=== PATIENT | female | born 1975 | race Caucasian/White ===

== ENCOUNTER 2022-05-22 18:35 | Emergency (ER) | payer BC ==
[~2022-05-22] VITALS: Ht 162.5 cm; Wt 82.3 kg
--- NOTE | 2022-05-22 19:16 | ED Cough/URI ---
General Chief Complaint: COVID19 Suspect/Confirmed Stated Complaint: POSS COVID Source: patient Exam Limitations: no limitations History of Present Illness Date Seen by Provider: May 22, 2022 Time Seen by Provider: 19:14 Initial Comments Patient is a 46-year-old female with a history of COPD presents ED with sore throat, cough, body aches headache chills fatigue. Symptoms started last night. She states she felt cold with chills throughout the night. She has been wearing multiple clothing to stay warm. She reports a wet productive cough with phlegm production. No shortness of breath, chest pain or wheezing. Denies breathing treatments at home. History of smoking 3 months ago. She reports some pain and discomfort to the left lateral abdomen. Described as sharp without radiation. No urinary symptoms. No one else at home with similar symptoms. Not up-to-date on her COVID or influenza vaccine. She has associated headache with sore. Has been taken ibuprofen without much improvement. She states she slept for most of the day. Denies neck pain, visual change, ear pain, back pain, dysuria, hematuria or concern for , nausea, vomiting, diarrhea, fever. Allergies and Home Medications Allergies Coded Allergies: No Known Drug Allergies (Unverified , 05/22/22) Patient Home Medication List Home Medication List Reviewed: Yes Nirmatrelvir/Ritonavir (Paxlovid 150-100 mg Pack (Eua)) 150 Mg-100 Mg Tablet, 1 EACH PO BID Prescribed by: ADRIÁN FREEMAN on 05/22/221952 Review of Systems Review of Systems Constitutional: chills; No diaphoresis; malaise, weakness EENTM: throat pain; No ear pain, No blurred vision, No double vision Respiratory: cough; No short of breath Cardiovascular: No chest pain Gastrointestinal: No abdominal pain, No diarrhea, No nausea, No vomiting Genitourinary: No decreased output, No discharge, No dysuria, No frequency Musculoskeletal: No back pain, No joint pain Skin: No change in color, No change in hair/nails All Other Systems Reviewed Negative Unless Noted: Yes Past Xekidcg-Vifrzq-Yzqssh Hx Patient Social History Tobacco Use?: Yes Tobacco type used: Cigarettes Smoking Status: Former Smoker Use of E-Cig and/or Vaping dev: Yes E-Cig or Vaping type used: Nicotine Use of E-Cig and/or Vaping Tom: Current Everyday User Substance use?: No Alcohol Use?: Yes Alcohol type: Beer, Wine Alcohol Frequency: Rarely Pt feels they are or have been: No Immunizations Up To Date Influenza Vaccine Up-to-Date: No; Not Current Physical Exam Vital Signs - First Documented 05/22/22 19:11 Temp 38.3 Pulse 70 Resp 20 B/P (MAP) 103/77 (86) Pulse Ox 97 O2 Delivery Room Air Capillary Refill : Height: '" Weight: lbs. oz. kg; BMI Method: General Appearance: WD/WN, no apparent distress Eyes: Bilateral Eye Normal Inspection, Bilateral Eye PERRL, Bilateral Eye Abnormal EOM HEENT: PERRL/EOMI, normal ENT inspection, TMs normal, pharynx normal Neck: non-tender, full range of motion, supple, normal inspection Respiratory: chest non-tender, lungs clear, normal breath sounds, no respiratory distress, no accessory muscle use Cardiovascular: regular rate, rhythm, no edema, no gallop, no JVD Gastrointestinal: normal bowel sounds, non tender, soft, no organomegaly, no pulsatile mass Neurologic/Psychiatric: vp integration II-XII nml as tested, no motor/sensory deficits, alert, normal mood/affect, oriented x 3 Skin: normal color, warm/dry Progress/Results/Core Measures Suspected Sepsis SIRS Temperature: Pulse: Respiratory Rate: Blood Pressure / Mean: Results/Orders Lab Results Laboratory Tests Test 05/22/22 19:06 05/22/22 19:16 Range/Units Influenza Type A (RT-PCR) Not Detected Not Detecte Influenza Type B (RT-PCR) Not Detected Not Detecte SARS-CoV-2 RNA (RT-PCR) Detected H Not Detecte Group A Streptococcus Screen NEGATIVE NEGATIVE Urine Color YELLOW Urine Clarity CLEAR Urine pH 6.0 5-9 Urine Specific [place] >=1.030 1.016-1.022 Urine Protein TRACE H NEGATIVE Urine Glucose (UA) NEGATIVE NEGATIVE Urine Ketones TRACE H NEGATIVE Urine Nitrite NEGATIVE NEGATIVE Urine Bilirubin NEGATIVE NEGATIVE Urine Urobilinogen 0.2 < = 1.0 MG/DL Urine Leukocyte Esterase NEGATIVE NEGATIVE Urine RBC (Auto) NEGATIVE NEGATIVE Urine RBC NONE /HPF Urine WBC RARE /HPF Urine Squamous Epithelial Cells 2-5 /HPF Urine Crystals NONE /LPF Urine Bacteria FEW H /HPF Urine Casts NONE /LPF Urine Mucus SMALL H /LPF Urine Culture Indicated YES Urine Test NEGATIVE NEGATIVE My Orders Orders - HUNG AMAYA Covid 19 Inhouse Test (05/22/22 18:46) Influenza A And B By Pcr (05/22/22 18:46) Rapid Strep A Screen (05/22/22 19:13) Urinalysis (05/22/22 19:13) Hcg,Qualitative Urine (05/22/22 19:13) Urine Culture (05/22/22 19:16) Ibuprofen Tablet (Motrin Tablet) (05/22/22 20:00) Ibuprofen Tablet (Motrin Tablet) (05/22/22 19:50) Medications Given in ED Current Medications Medications Dose Ordered Sig/Araceli Route Start Time Stop Time Status Last Admin Dose Admin Ibuprofen 800 mg ONCE ONCE PO 05/22/22 20:00 05/22/22 19:53 DC 05/22/22 19:50 800 MG Vital Signs/I&O 05/22/22 05/22/22 05/22/22 05/22/22 19:11 19:11 19:50 19:51 Temp 38.3 38.3 38.1 Pulse 70 66 Resp 20 16 B/P (MAP) 103/77 (86) 114/71 Pulse Ox 97 98 O2 Delivery Room Air Room Air Room Air Capillary Refill : Departure Communication (PCP) Urinalysis without strong evidence of infection. COVID-positive. Stable vital sign. Patient lung sounds clear bilateral. No acute respiratory distress. She has some left-sided abdominal tenderness without any evidence of peritoneal signs. Patient was given ibuprofen for headache. She has no meningeal signs. Symptoms started yesterday. She is currently on Zoloft and Klonopin. Discussed discharging patient with Ana. Desmond does not have the medication but this was sent to [facility]. Quarantine for 10 days. Not to date her COVID vaccines. Discussed monitor oxygen level with pulse ox. If any worsening symptoms such as shortness of breath, worsening cough to return back to ED. Discussed importance of oral hydration. Recommend Tylenol ibuprofen for body aches and pains. Impression Primary Impression: COVID-19 Disposition: 01 HOME, SELF-CARE Condition: Stable Departure-Patient Inst. Decision time for Depature: 19:46 Referrals: [facility] [place] NO,LOCAL PHYSICIAN (PCP) Primary Care Physician Patient Instructions: COVID-19 (DC) Scripts Nirmatrelvir/Ritonavir (Paxlovid 150-100 mg Pack (Eua)) 150 Mg-100 Mg Tablet 1 EACH PO BID for 5 Days, #10 TAB Prov: HUNG AMAYA 05/22/22 Work/School Note: Work Release Form Date Seen in the Emergency Department: May 22, 2022 Return to Work: Jun 01, 2022 HUNG AMAYA May 22, 2022 19:16
[2022-05-22 19:23] LABS: BILIRUBIN,URINE NEGATIVE (NEGATIVE); CLARITY,URINE CLEAR; COLOR,URINE YELLOW; GLUCOSE, URINE (UA) NEGATIVE (NEGATIVE); KETONES,URINE TRACE (NEGATIVE); LEUKOCYTE ESTERASE ,URINE NEGATIVE (NEGATIVE); NITRITE,URINE NEGATIVE (NEGATIVE); PROTEIN,URINE TRACE (NEGATIVE)
[2022-05-22 19:33] LABS: BACTERIA,URINE FEW /HPF; WBC,URINE RARE /HPF
[2022-05-22] MEDS ORDERED: NIRM1TAB5 PO ×2 (19:47→19:53)
[2022-05-22] MEDS ORDERED: IBUPROFEN 800 MG (MOTRIN) TAB PO ONE ×2 (19:50→20:00)
[2022-05-22 19:51] VITALS: BP 114/71
== END 2022-05-22 19:51 | disposition home or self-care (01) ==
LOC: ER 18:40
DX: U07.1 COVID-19 (principal); F17.290 Nicotine dependence, other tobacco product, uncomplicated; Z28.310 Unvaccinated for COVID-19
CPT/HCPCS: 81000; 84703; 87088; 87430; 87636; 99283

== ENCOUNTER 2023-01-26 18:46 | Emergency (ER) | payer SELFPAY ==
[~2023-01-26] VITALS: Ht 160 cm; Wt 82.3 kg
[~2023-01-26 18:46] MED LIST: NIRM1TAB5 PO
--- NOTE | 2023-01-26 19:51 | ED Lower Extremity ---
General Chief Complaint: Lower Extremity Stated Complaint: RIGHT KNEE INJURY Source: patient Exam Limitations: no limitations History of Present Illness Date Seen by Provider: Jan 26, 2023 Time Seen by Provider: 19:00 Initial Comments 47-year-old female with no pertinent past medical history coming in due to right knee pain. She was standing up about an hour prior to arrival, is thinking she may be twisted her knee, felt a give out. Having significant pain with straightening or putting weight on it. Has not taken anything for it as of yet. Otherwise denying any other acute complaints. She notes that 15 years ago she hurt her knee, went to the ER, and has never followed up with this. LMP less than a month ago Allergies and Home Medications Allergies Coded Allergies: Tetracyclines (Verified Allergy, Unknown, 01/26/23) amoxicillin (Verified Allergy, Unknown, 01/26/23) meloxicam (Verified Allergy, Unknown, 01/26/23) tolerates other NSAIDS paroxetine (Verified Allergy, Unknown, 01/26/23) sulfamethoxazole (Verified Allergy, Unknown, 01/26/23) trimethoprim (Verified Allergy, Unknown, 01/26/23) Patient Home Medication List Home Medication List Reviewed: Yes Nirmatrelvir/Ritonavir (Paxlovid 150-100 mg Pack (Eua)) 150 Mg-100 Mg Tablet, 1 EACH PO BID Prescribed by: ADRIÁN FREEMAN on 05/22/221952 Review of Systems Constitutional: No fever EENTM: no symptoms reported Respiratory: no symptoms reported Cardiovascular: no symptoms reported Gastrointestinal: no symptoms reported Genitourinary: no symptoms reported Musculoskeletal: see HPI Skin: no symptoms reported Psychiatric/Neurological: No Symptoms Reported Past Awukkxf-Qidalg-Kixfad Hx Patient Social History Tobacco Use?: No Use of E-Cig and/or Vaping dev: Yes E-Cig or Vaping type used: Nicotine Past Medical History Surgeries: Yes Section Physical Exam Vital Signs Vital Signs - First Documented 01/26/23 19:41 Temp 36.8 Pulse 72 Resp 20 B/P (MAP) 132/84 (100) Pulse Ox 98 O2 Delivery Room Air Capillary Refill : Height, Weight, BMI Height: '" Weight: lbs. oz. kg; 31.00 BMI Method: General Appearance: WD/WN, no apparent distress HEENT: PERRL/EOMI, normal ENT inspection, pharynx normal Neck: non-tender, full range of motion, supple, normal inspection Cardiovascular: regular rate, rhythm, no edema, no murmur Respiratory: chest non-tender, lungs clear, normal breath sounds, no respiratory distress, no accessory muscle use Gastrointestinal: normal bowel sounds, non tender, soft; No guarding Hips: bilateral hip non-tender, bilateral hip normal inspection, bilateral hip normal range of motion, bilateral hip no evidence of injury Legs: bilateral leg non-tender, bilateral leg normal inspection, bilateral leg normal range of motion, bilateral leg no evidence of injury Knees: right knee other (Right knee without swelling, no joint line tenderness, patella is located, pain with full extension and full flexion, although she does have full range of motion, neurovascularly intact distal to the injury) Neurologic/Tendon: normal sensation, normal motor functions Neurologic/Psychiatric: no motor/sensory deficits, alert, normal mood/affect Skin: normal color, warm/dry Progress/Results/Core Measures Results/Orders My Orders Orders - HUNG ESQUIVEL MD Knee, Right, 3 Views (01/26/23 19:46) Ibuprofen Tablet (Motrin Tablet) (01/26/23 20:00) Medications Given in ED Current Medications Medications Dose Ordered Sig/Araceli Route Start Time Stop Time Status Last Admin Dose Admin Ibuprofen 600 mg ONCE ONCE PO 01/26/23 20:00 01/26/23 20:01 DC 01/26/23 19:50 600 MG Vital Signs/I&O 01/26/23 19:41 Temp 36.8 Pulse 72 Resp 20 B/P (MAP) 132/84 (100) Pulse Ox 98 O2 Delivery Room Air Progress Progress Note : Progress Note 47-year-old female with above history coming in after right knee pain after feeling a give out. ABCs were intact and vitals are stable on presentation. Physical exam with pain with range of motion, although she has full range of motion, no joint line tenderness. X-ray of the right knee ordered and interpreted by me showing no fracture or dislocation. She is neurovascularly intact otherwise with no red flags. We will give her an Zion wrap, crutches, and have her follow-up with orthopedics as an outpatient. Departure Impression Primary Impression: Right knee pain Qualified Codes: M25.561 - Pain in right knee Disposition: 01 HOME, SELF-CARE Condition: Stable Departure-Patient Inst. Decision time for Depature: 20:30 Referrals: [facility] (PCP/Family) Primary Care Physician Patient Instructions: Knee Sprain (DC) Add. Discharge Instructions: Please follow-up with Dr. Jerome, the orthopedist for repeat evaluation, and he may need to order more advanced imaging. Use the crutches for comfort. Take ibuprofen and/or Tylenol as needed for pain. Also keep it elevated and wrapped. Work/School Note: Work Release Form Date Seen in the Emergency Department: Jan 26, 2023 Return to Work: Jan 30, 2023 Restrictions: Need Release from Doctor HUNG ESQUIVEL MD Jan 26, 2023 19:51
[2023-01-26] MEDS ORDERED: IBUPROFEN 600 MG (MOTRIN) TAB PO ONE (20:00)
--- NOTE | 2023-01-26 20:25 | Diagnostic Imaging Report ---
INDICATION: 47-year-old female with right knee pain. COMPARISONS: None FINDINGS: Three views of the right knee showed no evidence of new or healing fractures, bony destruction or remodeling. There is a small suprapatellar joint effusion. IMPRESSION: Small suprapatellar joint effusion but no fracture or subluxation is seen in the right knee. Dictated by: Dictated on workstation # [id number]
[2023-01-26 20:47] VITALS: BP 128/80
== END 2023-01-26 20:49 | disposition home or self-care (01) ==
LOC: EDUNIT# 18:46 → ER 18:50
DX: M25.561 Pain in right knee (principal); F17.290 Nicotine dependence, other tobacco product, uncomplicated; Z88.6 Allergy status to analgesic agent
CPT/HCPCS: 73562; 99283; L1830

== ENCOUNTER 2023-02-13 15:34 | Emergency (ER) | payer OTHER ==
[~2023-02-13] VITALS: Ht 160 cm; Wt 86.0 kg
--- NOTE | 2023-02-13 16:12 | ED Lower Extremity ---
General Chief Complaint: Lower Extremity Stated Complaint: RIGHT KNEE PAIN Nursing Triage Note: PT STATES PAIN IN RT KNEE, WAS SEEN FOR DISLOCATED KNEE CAP AND TORN CALF MUSCLE RECENTLY, CC TODAY BUMPS ON RT KNEE CAP, DID NOT NOTICE THIS BEFORE TODAY. Source: patient Exam Limitations: no limitations History of Present Illness Date Seen by Provider: Feb 13, 2023 Time Seen by Provider: 16:09 Initial Comments Patient is a 47-year-old female who presents to the ED with right knee pain. Patient states she woke up with concern for a triangular deformity of her right kneecap. She denies of any specific injury. She states she was seen here January 28 concerning for patella dislocation versus ligament injury. She did follow-up with Dr. Jerome orthopedic who recommended PT stationary bike recheck in 6 weeks if no improvement patient would likely benefit with MRI. She noticed some swelling to the anterior knee this morning. She states she has some pain with standing and walking but no worsening pain since the injury. She has been working more at [employer] which may be result of the potential deformity. She has been taken anti-inflammatories. She reports normal active range of motion without any lucency, laxity. Denies fever, chills, redness, swelling. She does report a right calf tear from her last injury. Patient works at [employer] and states her pharmacist recommended her to get an MRI. Allergies and Home Medications Allergies Coded Allergies: Tetracyclines (Verified Allergy, Unknown, 01/26/23) amoxicillin (Verified Allergy, Unknown, 01/26/23) meloxicam (Verified Allergy, Unknown, 01/26/23) tolerates other NSAIDS paroxetine (Verified Allergy, Unknown, 01/26/23) sulfamethoxazole (Verified Allergy, Unknown, 01/26/23) trimethoprim (Verified Allergy, Unknown, 01/26/23) Patient Home Medication List Home Medication List Reviewed: Yes Nirmatrelvir/Ritonavir (Paxlovid 150-100 mg Pack (Eua)) 150 Mg-100 Mg Tablet, 1 EACH PO BID Prescribed by: ADRIÁN FREEMAN on 05/22/221952 Review of Systems Constitutional: No chills, No diaphoresis, No malaise EENTM: No ear pain, No blurred vision, No double vision Respiratory: No cough, No dyspnea on exertion, No short of breath Cardiovascular: No chest pain, No edema Gastrointestinal: No abdominal pain, No diarrhea, No nausea, No vomiting Genitourinary: No decreased output, No discharge Musculoskeletal: joint pain, joint swelling Skin: No change in color, No change in hair/nails All Other Systems Reviewed Negative Unless Noted: Yes Past Gjplcdd-Thmppu-Mdhfbr Hx Patient Social History Use of E-Cig and/or Vaping dev: Yes E-Cig or Vaping type used: Nicotine Substance use?: No Additional substance use comme: HX OF DURG USE CLEAN FOR 15 YRS Alcohol Use?: No Immunizations Up To Date First/Initial COVID19 Vaccinat: NO Second COVID19 Vaccination Elliott: NO Third COVID19 Vaccination Date: NO Past Medical History Surgery/Hospitalization HX: ANXIETY, C SECTION Surgeries: Yes Section Physical Exam Vital Signs Vital Signs - First Documented 02/13/23 15:44 Temp 36.9 Pulse 69 Resp 20 B/P (MAP) 106/76 (86) Pulse Ox 96 O2 Delivery Room Air Capillary Refill : Less Than 3 Seconds Height, Weight, BMI Height: '" Weight: lbs. oz. kg; 33.00 BMI Method: General Appearance: WD/WN, no apparent distress HEENT: PERRL/EOMI, normal ENT inspection, TMs normal, pharynx normal Neck: non-tender, full range of motion, supple, normal inspection Cardiovascular: regular rate, rhythm, no edema, no gallop, no JVD Respiratory: chest non-tender, lungs clear, normal breath sounds, no res piratory distress, no accessory muscle use Gastrointestinal: normal bowel sounds, non tender, soft, no organomegaly Hips: bilateral hip non-tender, bilateral hip normal inspection, bilateral hip normal range of motion Knees: right knee pain, right knee soft tissue tenderness (Right patella tenderness), right knee swelling, right knee other (No laxity with valgus or varus stress. Negative anterior posterior drawer test. 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 Patient was seen here January 28 secondary to right knee injury. She had a unremarkable x-ray. She did follow-up with orthopedic who thought she may have dislocated her kneecap and a possible calf tear. He has recommended low impact PT with stationary bike and to follow-up in 6 weeks if pain progresses MRI for further evaluation. She states she woke up this morning concerning for a triangular deformity of the right knee. She denies of any recent falls besides her injury. Patient states she came to the ER to get an MRI as it was recommended by her pharmacist. She has been working more at [employer] and does have to get up and stand. She has not been walking a long distance or running. She states she has been taking small steps. on exam no strong evidence of effusion. Normal range of motion. No obvious deformity. No laxity with valgus or varus stress. Negative anterior posterior drawer test. Discussed with patient that she may have a ligament or meniscus injury that will need further evaluation. There was concern for potential patella dislocation which may have retinaculum injury. I do not feel emergent MRI is needed at this time. There is no evidence of septic arthritis. She does have full range of motion. Did offer a second x-ray to rule out occult fracture. X-ray was negative for acute abnormality. Discussed continue with your PT with outpatient follow-up with orthopedic. Continue with anti-inflammatories. She is able to ambulate. I do not suspect a fracture. No evidence of deformity noted on exam Impression Primary Impression: Right knee pain Disposition: HOME, SELF-CARE Condition: Stable Departure-Patient Inst. Decision time for Depature: 16:30 Referrals: [facility] [place]) Primary Care Physician Patient Instructions: Knee Pain ED, Knee Sprain (DC) Work/School Note: Work Release Form Date Seen in the Emergency Department: Feb 13, 2023 Return to Work: Feb 15, 2023 HUNG AMAYA Feb 13, 2023 16:12
--- NOTE | 2023-02-13 16:31 | Diagnostic Imaging Report ---
HISTORY: Right patella pain. TECHNIQUE: 4 views of the right knee. COMPARISON: 01/26/2023. FINDINGS: No acute fracture or dislocation is seen in the right knee. Alignment is normal. Joint spaces are preserved. There is no right knee joint effusion. There is a small superior patellar enthesophyte. IMPRESSION: No acute osseous abnormality is seen in the right knee. Dictated by: Dictated on workstation # [id number]
[2023-02-13 16:50] VITALS: BP 106/76
== END 2023-02-13 16:50 | disposition home or self-care (01) ==
LOC: EDUNIT# 15:34 → ER 15:37
DX: M25.561 Pain in right knee (principal); M25.461 Effusion, right knee; F17.290 Nicotine dependence, other tobacco product, uncomplicated; Z28.310 Unvaccinated for COVID-19
CPT/HCPCS: 73564

== ENCOUNTER → 2023-02-17 | Outpatient (CLI) | payer OTHER | LOC: ORTHO 10:36 | PROVIDERS: ATTEND Orthopaedic Surgery | DX: S83.241A Other tear of medial meniscus, current injury, right knee, initial encounter (principal); X58.XXXA Exposure to other specified factors, initial encounter | CPT/HCPCS: 99203 ==

== ENCOUNTER → 2023-03-15 | Outpatient (CLI) | payer BC ==
--- NOTE | 2023-03-15 19:39 | Diagnostic Imaging Report ---
MRI RT LOWER EXT JOINT W/O TECHNIQUE: Multiplanar, multisequence MR imaging of the right knee was performed without contrast. COMPARISON: 01/26/2023 INDICATION: Right knee pain FINDINGS: MENISCI Medial meniscus: Normal. Lateral meniscus: Irregularity and increased signal at the anterior root of the lateral meniscus may represent nondisplaced complex tear. LIGAMENTS ACL: Complete tear of the ACL is likely chronic in nature as there is no surrounding edema. PCL: Intact. MCL: Intact. LCL: The lateral collateral ligamentous complex is intact. EXTENSOR MECHANISM The extensor mechanism is intact. CARTILAGE Medial compartment: Medial compartment articular cartilage is well preserved without focal high-grade chondromalacia. Lateral compartment: The lateral compartment articular cartilage is preserved without high-grade chondromalacia. Patellofemoral compartment: Broad region of full-thickness articular cartilage loss in the lateral patella facet. Trochlear cartilage is fairly well-preserved. BONE No fracture, stress fracture or osteonecrosis. SOFT TISSUE No knee effusion or Shin's cyst. IMPRESSION: 1. Irregularity of the anterior horn of the lateral meniscus may represent nondisplaced tear near its root insertion. 2. 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 3. Chronic complete ACL tear. Dictated by: Dictated on workstation # [id number]
== END ==
LOC: RAD 13:07
PROVIDERS: ATTEND Orthopaedic Surgery
DX: S83.241A Other tear of medial meniscus, current injury, right knee, initial encounter (principal); M17.11 Unilateral primary osteoarthritis, right knee; S83.501A Sprain of unspecified cruciate ligament of right knee, initial encounter; X58.XXXA Exposure to other specified factors, initial encounter
CPT/HCPCS: 73721

== ENCOUNTER → 2023-03-23 | Outpatient (CLI) | payer BC | LOC: ORTHO 13:45 | PROVIDERS: ATTEND Orthopaedic Surgery | DX: M17.11 Unilateral primary osteoarthritis, right knee (principal) | CPT/HCPCS: 99213 ==

== ENCOUNTER → 2023-10-07 | Outpatient (CLI) | payer BC | LOC: ORTHO 14:18 | PROVIDERS: ATTEND Orthopaedic Surgery | DX: M17.11 Unilateral primary osteoarthritis, right knee (principal) | CPT/HCPCS: 20610; G0463; 99213 ==